=== PATIENT | male | born 1955 | race Caucasian/White ===

== ENCOUNTER → 2017-05-21 | Outpatient (CLI) | payer OTHER ==
[~2017-05-21] MED LIST: AMOXIL500 MG PO; FLAGYL500 MG; FLOMAX0.4 MG PO; HYDR25T PO; LISINOPRIL/HCTZ1 TA3 PO; LOPRESSOR25 MG PO; Magnesium Oxid400 MG PO; NORVASC10 MG PO; SINGULAIR10 MG PO; TRAMADOL HCL50 MG PO; VIBRA-TAB100 MG PO; VITAMIN D32000 UNIT PO; ZOCOR20 MG PO; ZYLOPRIM300 MG PO
== END | disposition home or self-care (01) ==
LOC: CARD 08:12
DX: R06.02 Shortness of breath (principal)

== ENCOUNTER 2018-04-02 13:20 | Emergency (ER) | payer OTHER ==
[~2018-04-02] VITALS: Ht 175.2 cm; Wt 108.9 kg
[2018-04-02] MEDS ORDERED: CEPHALEXIN500 M1 PO (14:50)
== END 2018-04-02 14:46 | disposition home or self-care (01) ==
LOC: ED 13:20
DX: S61.432A Puncture wound without foreign body of left hand, initial encounter (principal); Z87.442 Personal history of urinary calculi; Z79.899 Other long term (current) drug therapy; Z88.7 Allergy status to serum and vaccine; W26.0XXA Contact with knife, initial encounter; Y93.89 Activity, other specified; Y92.89 Other specified places as the place of occurrence of the external cause; Y99.9 Unspecified external cause status

== ENCOUNTER → 2018-06-14 | Day surgery (SDC) | payer OTHER ==
[~2018-06-14] MED LIST changes: +CEPHALEXIN500 M1 PO
--- NOTE | ~2018-06-14 | O ---
[place], [place] OPERATIVE NOTE NAME: [facility] [id number] UNIT #: [id number] ROOM: DOCTOR: BILLY BARRON MD BIRTHDATE: [birth year] DOS: 06/14/2018 A 62-year-old patient who presented with history of colonic polyp, last colonoscopy 2006. FAMILY HISTORY: Noncontributory. ALLERGIES: No known medication. PAST SURGICAL HISTORY: Unremarkable. PAST MEDICAL HISTORY: Obesity, hypertension, hyperlipidemia, gout, chronic renal disease. PROCEDURE: Today's procedure part of investigation is colonoscopy plus piecemeal polypectomy. PREMEDICATION: Propofol. SCOPE: Olympus folding colonoscope 10L video. REPORT: After putting the patient in left lateral position and application of lubricant to the scope, the scope was introduced. Thereafter, under direct visualization, advanced through the length of colon without difficulty. Base of the cecum explored, appendiceal orifice identified, ileocecal valve was defined. Scattered diverticulosis noticed a sessile polypoid lesion in sigmoid colon with piecemeal polypectomy removed. Air was suctioned out. The patient was extubated, tolerated the procedure well. IMPRESSION: Diverticulosis, scatteredly sessile colonic polyp, sigmoid colon, status post piecemeal polypectomy. PLAN: High fiber fruit diet. ACTIVITY: Ad sharon. FOLLOWUP: Routinely with you in office. Thank you very much indeed. [place], [place] OPERATIVE NOTE NAME: [facility] [id number] UNIT #: [id number] ROOM: DOCTOR: BILLY BARRON MD BIRTHDATE: [birth year] BILLY BARRON MD CM:OPRECORD:OPERATIVE NOTE [id number] KUSUM BARRON MD 06/14/18 1348 interface
[2018-06-14 11:50] VITALS: BP 133/80
[2018-06-14 13:30] VITALS: BP 131/88
[2018-06-14 13:45] VITALS: BP 136/80
[2018-06-14 14:00] VITALS: BP 135/85
== END | disposition home or self-care (01) ==
LOC: SDC 06-13 10:15
DX: Z12.11 Encounter for screening for malignant neoplasm of colon (principal); Z86.010 Personal history of colon polyps; K63.5 Polyp of colon; K57.30 Diverticulosis of large intestine without perforation or abscess without bleeding; E78.5 Hyperlipidemia, unspecified; M10.9 Gout, unspecified; I12.9 Hypertensive chronic kidney disease with stage 1 through stage 4 chronic kidney disease, or unspecified chronic kidney disease; N18.3 Chronic kidney disease, stage 3 (moderate); E66.09 Other obesity due to excess calories; J45.909 Unspecified asthma, uncomplicated; G47.33 Obstructive sleep apnea (adult) (pediatric); Z87.442 Personal history of urinary calculi; Z98.890 Other specified postprocedural states; Z79.899 Other long term (current) drug therapy

== ENCOUNTER → 2018-11-18 | Outpatient (CLI) | payer OTHER | END | disposition home or self-care (01) | LOC: US 13:14 | DX: N18.3 Chronic kidney disease, stage 3 (moderate) (principal) ==

== ENCOUNTER → 2018-12-12 | Outpatient (CLI) | payer OTHER ==
[2018-12-12 14:37] LABS: BILIRUBIN NEGATIVE (NEGATIVE); BLOOD TRACE-INTACT (NEGATIVE); CLARITY CLEAR (CLEAR); COLOR YELLOW (YELLOW); GLUCOSE NEGATIVE (NEGATIVE); KETONE TRACE (NEGATIVE); LEUKO ESTERASE NEGATIVE (NEGATIVE); NITRITE NEGATIVE (NEGATIVE); PH 6.5 (5.0-9.0); SPECIFIC GRAVITY 1.015 (1.005-1.030); UROBILINOGEN 0.2 E.U./dl (0.2-1.0)
[2018-12-12 14:43] LABS: BACTERIA 2+; EPITHELIAL CELLS 0-2; MUCOUS TRACE; WBC 0-2 wbc/hpf (0-5)
[2018-12-12 15:09] LABS: BUN 15 mg/dl (7-24); CHLORIDE 104 mmol/L (98-107); CPK 226 U/L (39-308); CREATININE 1.32 mg/dL (0.70-1.30); POTASSIUM 3.5 mmol/L (3.5-5.1); SODIUM 140 mmol/L (136-145)
[2018-12-12 15:41] LABS: PTH INTACT 39.2 pg/mL (18.5-88.0); VITAMIN D, 25-HYDROXY 22.9 ng/mL (30-100)
[2018-12-13 10:09] LABS: CREATININE,URINE 166.2 mg/dL (Not Estab.); MICRO ALBUMIN/CRE RATIO 53.9 (0.0-30.0)
== END | disposition home or self-care (01) ==
LOC: LAB 14:02
PROVIDERS: Internal Medicine Nephrology
DX: N18.3 Chronic kidney disease, stage 3 (moderate) (principal); E83.9 Disorder of mineral metabolism, unspecified; R25.2 Cramp and spasm

== ENCOUNTER → 2019-09-27 | Outpatient (CLI) | payer OTHER | END | disposition home or self-care (01) | LOC: RAD 15:56 | DX: M51.36 Other intervertebral disc degeneration, lumbar region (principal) ==

== ENCOUNTER 2020-06-03 12:57 | Inpatient (IN) | payer OTHER ==
[~2020-06-03] VITALS: Ht 170.2 cm; Wt 100.9 kg
[2020-06-03 13:05] VITALS: BP 120/86
[2020-06-03 13:43] LABS: BASO % 0.1 % (0.0-1.0); HEMATOCRIT 41.2 % (42.0-52.0); MEAN CELL VOLUME 85.7 fl (80.0-94.0); MEAN CORPUSCULAR HGB 30.1 pg (27.0-31.0); MEAN CORPUSCULAR HGB CONC 35.2 g/dl (33.0-37.0); MEAN PLATELET VOLUME 9.7 fl (9.6-12.3); MONO # 0.8 10*3/uL (0.1-1.0); NEUT # 5.4 10*3/uL (2.3-7.9); NEUT % 74.6 % (47.0-73.0); PLATELET COUNT AUTOMATED 149 10*3/uL (130-400); RED BLOOD COUNT 4.81 10*6/uL (4.50-5.90); RED CELL DISTRI WIDTH 13.6 % (0-14.5); WHITE BLOOD COUNT 7.2 10*3/uL (4.8-10.8)
[2020-06-03 13:54] LABS: ACT PARTIAL THROMBO TIME 32.9 SECONDS (20.0-32.1); INTERNATIONAL NORM RATIO 1.1 (2.0-3.5)
[2020-06-03 14:01] LABS: ALBUMIN 3.9 gm/dl (3.1-4.5); ALKALINE PHOSPHATASE 70 U/L (45-117); BUN 21 mg/dl (7-24); CHLORIDE 99 mmol/L (98-107); CREATININE 1.72 mg/dL (0.70-1.30); LIPASE 117 U/L (73-393); POTASSIUM 3.3 mmol/L (3.5-5.1); SGOT/AST 21 IU/L (3-35); SGPT/ALT 23 U/L (12-78); SODIUM 133 mmol/L (136-145); TOTAL PROTEIN 7.8 gm/dL (6.4-8.2)
[2020-06-03 14:02] LABS: TROPONIN I < 0.015 ng/ml (<0.045)
[2020-06-03 14:40] LABS: BILIRUBIN NEGATIVE (NEGATIVE); BLOOD 3+ (NEGATIVE); CLARITY CLEAR (CLEAR); COLOR YELLOW (YELLOW); GLUCOSE NEGATIVE (NEGATIVE); KETONE NEGATIVE (NEGATIVE); LEUKO ESTERASE NEGATIVE (NEGATIVE); NITRITE NEGATIVE (NEGATIVE); SPECIFIC GRAVITY 1.025 (1.005-1.030); UROBILINOGEN 0.2 E.U./dl (0.2-1.0)
[2020-06-03 14:51] LABS: BACTERIA TRACE; MUCOUS 1+; WBC 0-2 wbc/hpf (0-5)
--- NOTE | 2020-06-03 16:04 | NUR ---
PATIENT'S SISTER DEANDRE CALLED FOR UPDATE WILL CALL BACK.
--- NOTE | 2020-06-03 16:05 | NUR ---
PATIENT GAVE PERMISSION TO TALK AND GIVE INFORMATION TO HIS MINGO CARRERA.
[2020-06-03] MEDS ORDERED: CETIRIZINE10 MG PO (18:07)
[2020-06-03] MEDS ORDERED: LOPRESSOR50 M1 PO (18:07)
[2020-06-03 18:25] VITALS: BP 129/70
[2020-06-03 18:50] VITALS: BP 151/73
--- NOTE | 2020-06-03 18:50 | NUR ---
Time: 1849 A 64 year old MALE admitted to 5E under services of DR. ALFONSO FRANCO,[facility]. Pt. arrived via stretcher from ER. Chief complaint: CELLULITIS . HARDEEP MÁRQUEZ
[2020-06-03] MEDS ORDERED: LISINOPRIL2.5 MG PO (18:53)
[2020-06-03] MEDS ORDERED: ALLOPURINOL300 MG PO (18:55)
[2020-06-03] MEDS ORDERED: VITAMIN D350 MC2 PO (18:56)
--- NOTE | 2020-06-03 19:00 | NUR ---
ASSUMED CARE FOR THIS PT AT THIS TIME. PT C/O RT THIGH PAIN. WILL NOTIFY MD. RT ANTERIOR THIGH RED/WARM/SWOLLEN. CALL LIGHT IN REACH.
--- NOTE | 2020-06-03 19:52 | NUR ---
SPOKE W/RESIDENT AUTOMATIC PATTERN EDGER RE PT'S HOME MEDS RECONCILED AND PT C/O PAIN TO RT THIGH AND TEMP OF 101.6 AND NEED FOR DIET ORDER. TO TAKE A LOOK AT CHART AND T.O. RCVD FOR TYELNOL 650MG PO EVERY 6 HRS PRN.
[2020-06-03 20:00] VITALS: BP 149/79
--- NOTE | 2020-06-03 20:21 | NUR ---
PT MEDICATED W/TYLENOL FOR ELEVATED TEMP/PAIN. WILL MONITOR FOR EFFECTIVENESS. CALL LIGHT IN REACH.
--- NOTE | 2020-06-03 21:21 | NUR ---
PT STATES TYLENOL WAS EFFECTIVE FOR PAIN RELIEF.
--- NOTE | 2020-06-03 22:17 | NUR ---
DR. BOYLE NOTIFIED OF PT'S TEMP OF 102.3 AFTER TYLENOL GIVEN. CONTINUE TO MONITOR AT THIS TIME. ICE PACK GIVEN TO PT.
[2020-06-04] VITALS: BP 157/84
--- NOTE | 2020-06-04 05:54 | NUR ---
KATHRINEMARIELA VILLANUEVA [id number] Please refer to the physician's history and physical for past medical history, comorbid conditions, and allergies. Diagnosis: CELLULITIS OF RIGHT THIGH Delfino Score: 21,LOW OR NO RISK WOUND DESCRIPTIONS: Wound Number: 1 Location of the wound: Right upper thigh ( cellulitis vs abscess ) Size: 16.5cm x 21.0cm x <0.1cm Nurse caring for patient Amos RN states areas is increasin in size since earlier in the shift. Tunneling: none Undermining: none Sinus Tract: none Presence of Exudate:none Amount: None Color: Red, purple Odor: None Periwound Skin Appearance: Hot Wound edges: closed Pain (associated with wound): tender at time of assessment How does patient state this happened? pt states this started 3 days ago and believe he may have gotten bit Surface the patient is resting on: Isoflex SKIN PREVENTION RECOMMENDATION: 1. Pressure redistribution support surface as appropriate 2. Elevate heels 3. Remove boots/TEDS every shift and reapply 4. Head of bed 30 degrees as tolerated 5. Assess nutrition and hydration 6. Manage moisture 7. Avoid the use of containment devices while in bed 8. Use absorptive products on surfaces limit layers of linens on bed 9. Turn and reposition every 1-2 hours in bed and every 1 hour in chair as tolerated 10. Weight shifts every 15 minutes while up in chair 11. Offloading with pillows or device to keep heels elevated off bed 12. Monitor skin at least every shift 13. Inspect under medical devices twice a day WOUND TREATMENT RECOMMENDATIONS: Warm compress qid for 15 mins or as tolerated Consult ID for area to right upper thigh Consult Dr. Benjamin for area to right upper thigh Patient given wound care center card if area open and he wishes to follow up he is able to do so.
[2020-06-04 06:39] LABS: BASO % 0.1 % (0.0-1.0); EOS % 0.1 % (1.0-4.0); HEMATOCRIT 39.2 % (42.0-52.0); LYMPH % 12.2 % (27.0-41.0); MEAN CELL VOLUME 85.4 fl (80.0-94.0); MEAN CORPUSCULAR HGB 29.4 pg (27.0-31.0); MEAN CORPUSCULAR HGB CONC 34.4 g/dl (33.0-37.0); MEAN PLATELET VOLUME 10.1 fl (9.6-12.3); MONO % 12.5 % (3.0-9.0); NEUT # 5.9 10*3/uL (2.3-7.9); NEUT % 74.5 % (47.0-73.0); PLATELET COUNT AUTOMATED 145 10*3/uL (130-400); RED BLOOD COUNT 4.59 10*6/uL (4.50-5.90); RED CELL DISTRI WIDTH 13.9 % (0-14.5); WHITE BLOOD COUNT 7.9 10*3/uL (4.8-10.8)
--- NOTE | 2020-06-04 07:00 | NUR ---
ARRIVED ON SHIFT, RECEIVED REPORT FROM OFFGOING NURSE, ASSUMED CARE OF JOHNIE.
[2020-06-04 07:10] LABS: ALBUMIN 3.4 gm/dl (3.1-4.5); BUN 17 mg/dl (7-24); CHLORIDE 102 mmol/L (98-107); POTASSIUM 3.2 mmol/L (3.5-5.1); SODIUM 135 mmol/L (136-145)
[2020-06-04 07:17] LABS: ALKALINE PHOSPHATASE 66 U/L (45-117); CHOLESTEROL 87 mg/dL (<200); CREATININE 1.42 mg/dL (0.70-1.30); FREE T4 1.01 ng/dl (0.76-1.46); HDL CHOLESTEROL 26 mg/dl (40-60); LDL CHOLESTEROL 38 mg/dL (9-159); SGOT/AST 22 IU/L (3-35); SGPT/ALT 22 U/L (12-78); THYROID STIM HORMONE (HS) 0.147 uIU/ml (0.358-4.75); TOTAL PROTEIN 7.1 gm/dL (6.4-8.2); TRIGLYCERIDES 113 mg/dl (<150); VLDL CHOLESTEROL 23 mg/dL (6-40)
--- NOTE | 2020-06-04 07:30 | NUR ---
INTRODUCED SELF TO PATIENT BED IN LOW POSITION, WHEEL LOCKS ENGAGED, SR UP X 2 FOR TURNING AND REPOSITIONING, CALL LIGHT WITHIN REACH, NO NEEDS VOICED AT THSI TIME.
[2020-06-04 08:00] VITALS: BP 110/70; BP 140/86
[2020-06-04 08:51] LABS: VITAMIN D, 25-HYDROXY 30.7 ng/mL (30-100)
--- NOTE | 2020-06-04 09:00 | NUR ---
Door Opener in to talk to patient. Patient states lives at home with mom. There are mo steps in the home. Physician: alice [facility]: [facility]: none Patient's level of ADLs: INDEPENDENT Patient has working utilities: all working DME: none Follow-up physician's appointment after d/c: patient prefers to make own follow up doctors appointment Does patient want to access PORTAL?: no Discharge plan discussed with patient, he states he lives at home with mom, he is independent in adls and ambulation, drives, he states he will return home when discharged and denies any home needs. CHANELLE CARTER
--- NOTE | 2020-06-04 09:13 | NUR ---
Shift chart check completed.
--- NOTE | 2020-06-04 10:20 | NUR ---
NORCO EFFECTIVE PATIENT REPORTS DECREASED PAIN RIGHT THIGH.
--- NOTE | 2020-06-04 10:22 | NUR ---
[facility]
--- NOTE | 2020-06-04 10:50 | NUR ---
PLACED CALL TO ID SPOKE TO ID, ADVISED OF CONSULT FOR CELLULITIS
[2020-06-04 12:00] VITALS: BP 139/90
--- NOTE | 2020-06-04 15:30 | NUR ---
CALL PLACED TO DR. HAMILTON ADVISED PATIENTS MEDIXCATIONS HAD NOT BEEN STARTED, ORDER RECEIVED TO CONTINUE ALL HOME MEDICATIONS
[2020-06-04 16:00] VITALS: BP 135/73
[2020-06-04] MEDS ORDERED: DOXYCYCLINE100 M3 PO (16:39)
[2020-06-04 20:00] VITALS: BP 127/71
--- NOTE | 2020-06-04 20:37 | NUR ---
PT C/O NAUSEA AND RT THIGH PAIN 04/28. MEDICATED W/ZOFRAN AND NORCO. RIGHT THIGH REMAINS RED/WARM/SWOLLEN. REFUSING WARM COMPRESS AT THIS TIME.
--- NOTE | 2020-06-04 21:37 | NUR ---
PT STATES THAT PRN MEDS WERE EFFECTIVE.
[2020-06-05] VITALS: BP 115/67
--- NOTE | 2020-06-05 03:31 | NUR ---
PT RESTING QUIETLY IN BED W/EYES CLOSED. CALL LIGHT IN REACH.
--- NOTE | 2020-06-05 06:36 | NUR ---
PT'S POTASSIUM LEVEL IS 3.2. WOULD YOU LIKE A PO SUPPLEMENT PRIOR TO D/C?
[2020-06-05 08:00] VITALS: BP 116/72
[2020-06-05 12:00] VITALS: BP 118/68
[2020-06-05] MEDS ORDERED: DOXYCYCLINE100 M3 PO (15:49)
[2020-06-05 16:00] VITALS: BP 129/80
--- NOTE | 2020-06-05 16:15 | NUR ---
UPON DOING DISCHARGE DISCOVERED THAT MED RECORD WAS NOT COMPLETED FOR NEW PERSCRIPTION OF GABAPENTIN, ADVISED DR. HAMILTON WHO WAS STILL IN BUILDING AT THE TIME STATED HE WOULD FIX.
--- NOTE | 2020-06-05 16:30 | NUR ---
ATTEMPTED TO COMPLETE DISCHARGE HOWEVER, ALFONSO PATEL HAD YET TO FIX GABAPENTIN ORDER, CALL PLACED TO DR. HAMILTON, HE REQUESTED I CALL DR. CALDERON AND ASKED HIM TO FIX, DR. CALDERON ADVISED PER POLICY HE COULD NOT DO THAT.
--- NOTE | 2020-06-05 16:45 | NUR ---
CALL PLACED TO DR. ARREOLA ADVISED OF CONVERSATION WITH DR. CALDERON, HE ADVISED TO TELL PATIENT TO JUST USE TYLENOL, HE COULD FOLLOW UP WITH SOMETHING STRONGER IF NEEDED.
--- NOTE | 2020-06-05 17:30 | NUR ---
Discharge instructions reviewed with patient/family. Patient receptive and verbalizes understanding. Follow-up care arranged. Written instructions given to patient/family, IV REMOVED, REFUSED W/C FOR DISCHARGE. STEPAN DIOR
== END 2020-06-05 18:20 | disposition home or self-care (01) | DRG 720 ==
LOC: ED 12:57 → EDHOLD 16:28 → 5E 16:28
PROVIDERS: Emergency Medicine; Internal Medicine; ADMIT Internal Medicine
DX: A41.9 Sepsis, unspecified organism (principal); L03.115 Cellulitis of right lower limb; N18.3 Chronic kidney disease, stage 3 (moderate); E55.9 Vitamin D deficiency, unspecified; E78.5 Hyperlipidemia, unspecified; N40.0 Benign prostatic hyperplasia without lower urinary tract symptoms; M10.9 Gout, unspecified; E87.1 Hypo-osmolality and hyponatremia; A69.20 Lyme disease, unspecified; I12.9 Hypertensive chronic kidney disease with stage 1 through stage 4 chronic kidney disease, or unspecified chronic kidney disease; Z88.7 Allergy status to serum and vaccine

== ENCOUNTER → 2020-06-17 | Outpatient (CLI) | payer OTHER ==
[~2020-06-17] MED LIST changes: +ALLOPURINOL300 MG PO; +CETIRIZINE10 MG PO; +DOXYCYCLINE100 M3 PO; +LISINOPRIL2.5 MG PO; +LOPRESSOR50 M1 PO; +VITAMIN D350 MC2 PO
== END | disposition home or self-care (01) ==
LOC: US 13:30
DX: R79.89 Other specified abnormal findings of blood chemistry (principal)

== ENCOUNTER 2022-04-22 10:57 | Emergency (ER) | payer OTHER ==
[~2022-04-22] VITALS: Ht 170.1 cm; Wt 106.6 kg
== END 2022-04-22 11:40 | disposition home or self-care (01) ==
LOC: ED 10:57
DX: S30.0XXA Contusion of lower back and pelvis, initial encounter (principal); M10.9 Gout, unspecified; E78.5 Hyperlipidemia, unspecified; I12.9 Hypertensive chronic kidney disease with stage 1 through stage 4 chronic kidney disease, or unspecified chronic kidney disease; N18.30 Chronic kidney disease, stage 3 unspecified; Z79.899 Other long term (current) drug therapy; Z88.8 Allergy status to other drugs, medicaments and biological substances; W17.89XA Other fall from one level to another, initial encounter; Y93.89 Activity, other specified; Y92.89 Other specified places as the place of occurrence of the external cause; Y99.8 Other external cause status

== ENCOUNTER → 2023-05-09 | Outpatient (CLI) | payer MEDICARE | END | disposition home or self-care (01) | LOC: US 00:32 | PROVIDERS: ATTEND Internal Medicine | DX: N20.0 Calculus of kidney (principal); K76.0 Fatty (change of) liver, not elsewhere classified; R16.1 Splenomegaly, not elsewhere classified; R10.30 Lower abdominal pain, unspecified ==

== ENCOUNTER → 2023-07-03 | Outpatient (CLI) | payer MEDICARE ==
[~2023-07-03] MED LIST changes: +CARAFATE1 G1 PO; +OMEPRAZOLE40 MG PO
== END | disposition home or self-care (01) ==
LOC: RAD/SH 01:01
PROVIDERS: ATTEND Internal Medicine
DX: R13.19 Other dysphagia (principal)

== ENCOUNTER → 2024-09-04 | Outpatient (CLI) | payer MEDICARE ==
[2024-09-04 15:15] LABS: BASO % 0.2 % (0.0-1.0); BILIRUBIN Negative (Negative); BLOOD Trace-Lysed (Negative); CLARITY Clear (Clear); COLOR Yellow (Yellow); EOS # 0.1 10*3/uL (0.0-0.4); EOS % 1.2 % (1.0-4.0); GLUCOSE Negative (Negative); HEMATOCRIT 37.2 % (42.0-52.0); KETONE Negative (Negative); LEUKO ESTERASE Negative (Negative); LYMPH # 1.6 10*3/uL (1.3-4.4); LYMPH % 27.2 % (27.0-41.0); MEAN CELL VOLUME 86.9 fl (80.0-94.0); MEAN CORPUSCULAR HGB 31.5 pg (27.0-31.0); MEAN CORPUSCULAR HGB CONC 36.3 g/dl (33.0-37.0); MEAN PLATELET VOLUME 9.4 fl (9.6-12.3); MONO # 0.5 10*3/uL (0.1-1.0); NEUT # 3.7 10*3/uL (2.3-7.9); NEUT % 62.9 % (47.0-73.0); NITRITE Negative (Negative); PH 5.5 (4.5-8.0); PLATELET COUNT AUTOMATED 148 10*3/uL (130-400); RED BLOOD COUNT 4.28 10*6/uL (4.50-5.90); RED CELL DISTRI WIDTH 14.6 % (0-14.5); UROBILINOGEN 0.2 E.U./dl (0.0-1.0); WHITE BLOOD COUNT 5.9 10*3/uL (4.8-10.8)
[2024-09-04 15:25] LABS: URINE CREATININE RANDOM 186.91 mg/dL
[2024-09-04 15:26] LABS: RBC 0-2 rbc/hpf (0-2); WBC 0-2 wbc/hpf (0-5)
[2024-09-04 15:52] LABS: ALKALINE PHOSPHATASE 83 U/L (46-116); BUN 11 mg/dl (9-23); CHLORIDE 104 mmol/L (98-107); CHOLESTEROL 118 mg/dL (<200); LDL CHOLESTEROL 47 mg/dL (9-159); POTASSIUM 3.9 mmol/L (3.4-5.1); SGPT/ALT 25 U/L (5-49); TOTAL PROTEIN 6.9 gm/dL (6.0-8.0); TRIGLYCERIDES 199 mg/dl (<150); VITAMIN D, 25-HYDROXY 39.9 ng/mL (30-100)
== END | disposition home or self-care (01) ==
LOC: LAB 14:40
PROVIDERS: ATTEND Internal Medicine Nephrology
DX: E78.5 Hyperlipidemia, unspecified (principal); N18.31 Chronic kidney disease, stage 3a; N40.1 Benign prostatic hyperplasia with lower urinary tract symptoms; E03.9 Hypothyroidism, unspecified; E63.9 Nutritional deficiency, unspecified

== ENCOUNTER → 2025-06-15 | Outpatient (CLI) | payer MEDICARE | LOC: RAD 14:05 | PROVIDERS: ATTEND Internal Medicine | DX: R22.2 Localized swelling, mass and lump, trunk (principal) ==

== ENCOUNTER 2025-10-02 10:35 | Emergency (ER) | payer MEDICARE ==
[~2025-10-02] VITALS: Ht 167.6 cm; Wt 81.6 kg
[2025-10-02 12:05] LABS: BILIRUBIN Negative (Negative); BLOOD Negative (Negative); CLARITY Clear (Clear); COLOR Yellow (Yellow); KETONE Negative (Negative); LEUKO ESTERASE Negative (Negative); NITRITE Negative (Negative); PH 5.0 (4.5-8.0); SPECIFIC GRAVITY 1.015 (1.001-1.030); UROBILINOGEN 0.2 E.U./dl (0.0-1.0)
[2025-10-02 12:22] LABS: BACTERIA TRACE; EPITHELIAL CELLS 0-2
== END 2025-10-02 12:35 | disposition home or self-care (01) ==
LOC: ED 10:35
PROVIDERS: Nurse Practitioner Family
DX: S29.011A Strain of muscle and tendon of front wall of thorax, initial encounter (principal); S20.212A Contusion of left front wall of thorax, initial encounter; M10.9 Gout, unspecified; E78.5 Hyperlipidemia, unspecified; I12.9 Hypertensive chronic kidney disease with stage 1 through stage 4 chronic kidney disease, or unspecified chronic kidney disease; N18.30 Chronic kidney disease, stage 3 unspecified; J45.909 Unspecified asthma, uncomplicated; G47.30 Sleep apnea, unspecified; Z88.7 Allergy status to serum and vaccine; Z87.442 Personal history of urinary calculi; W20.8XXA Other cause of strike by thrown, projected or falling object, initial encounter; Y93.01 Activity, walking, marching and hiking; Y92.89 Other specified places as the place of occurrence of the external cause; Y99.8 Other external cause status